=== PATIENT | male | born 2000 | race Caucasian/White ===

== ENCOUNTER 2020-11-06 20:59 | Emergency (ER) | payer MEDICAID ==
[~2020-11-06] VITALS: Ht 185.4 cm; Wt 84.1 kg
[2020-11-06 21:09] VITALS: BP 128/76
== END 2020-11-06 23:26 | disposition left against medical advice (07) ==
LOC: EMS 21:06
DX: F41.9 Anxiety disorder, unspecified (principal); Z53.21 Procedure and treatment not carried out due to patient leaving prior to being seen by health care provider